=== PATIENT | female | born 1990 | race Caucasian/White ===

== ENCOUNTER → 2020-12-23 13:30 | Outpatient (BNVA) | payer MEDICAID, SELFPAY | PROVIDERS: PCP Nurse Practitioner; Visit Provider Internal Medicine Gastroenterology ==

== ENCOUNTER 2021-01-18 06:24 | Day surgery (SDC) | payer MEDICAID, SELFPAY ==
[2021-01-12 11:34] VITALS: BMI 25.6
--- NOTE | 2021-01-17 10:22 | P.CONAN_ITS ---
Documented by User: Addie Powell 01/17/21 10:23 HPI - Anesthesia Eval Consult details Narrative: 30yo F for Upper Endoscopy PMFSH Active Problems Active Problems: All Active Problems (Updated 01/12/21 @ 11:36 by Ginette Juarez) Celiac disease (Acute) Chronic RLQ pain (Acute) Iron deficiency anemia (Acute) Anxiety (Acute) Past Medical History Medical History Anemia History of celiac disease Family History Family History Father No problems noted. Mother No problems noted. Surgical History Surgical History Hx of abdominoplasty Hx of section Hx of tonsillectomy Hx of umbilical hernia repair Social History Social History Household Members: Significant Other and Children Are you a primary day care attendant to a significant other at home: No Do you presently have visiting nurse or other home services: No Alcohol intake: current Alcohol intake frequency: a few times a month Smoking Status: Current every day smoker Tobacco Type: Cigarette Cigarettes Per Day: 3 Years Smoked: 8 Smoked in Last 30 Days: Yes Use of substances other than those prescribed or required for medical reasons: No Have you been hit, kicked, punched, or otherwise hurt by someone within the past year? 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 Allergies Allergy/AdvReac Type Severity Reaction Status Date / Time No Known Allergies Allergy Mild UNKNOWN Verified 01/18/21 06:33 Exam Exam Date and Time: January 17, 2021 1022 Height,Weight and Vital Signs: Height 5 ft 2 in Weight 63.503 kg Assessment and Plan Assessment Anesthesia Assessment: Chart Reviewed Documented by User: Reny Olmstead 01/18/21 08:05 [facility] Past Medical History Medical History Anemia History of celiac disease Family History Family History Father No problems noted. Mother No problems noted. Family history of problems with anesthesia: No Surgical History Surgical History Hx of abdominoplasty Hx of section Hx of tonsillectomy Hx of umbilical hernia repair History of Problems with Anesthesia: No Social History Social History Household Members: Significant Other and Children Are you a primary day care attendant to a significant other at home: No Do you presently have visiting nurse or other home services: No Alcohol intake: current Alcohol intake frequency: a few times a month Smoking Status: Current every day smoker Tobacco Type: Cigarette Cigarettes Per Day: 3 Years Smoked: 8 Smoked in Last 30 Days: Yes Use of substances other than those prescribed or required for medical reasons: No Have you been hit, kicked, punched, or otherwise hurt by someone within the past year? 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 Allergies Allergy/AdvReac Type Severity Reaction Status Date / Time No Known Allergies Allergy Mild UNKNOWN Verified 01/18/21 06:33 Exam Height,Weight and Vital Signs: Vital Signs Temp Pulse Resp BP Pulse Ox 01/18/21 06:46 98.2 F 85 18 107/71 96 Pertinent Lab Results Pertinent Lab Results: Lab Results 01/18/21 Range/Units 06:37 Urine Test NEGATIVE (NEGATIVE) Airway Mallampati Class: II TM Dist: >3cm Neck ROM: Full Heart: RRR Lungs: CTAB Assessment and Plan Assessment Anesthesia Assessment: Anesthesia Plan Discussed and Chart Reviewed Final Anesthetic Review NPO: Yes ASA Class: II Final Preanesthetic Review: No Changes in Pt Med Stat, Meds/Allgs Chart Reviewed, Consent Obtained/Reviewed and Anes Risks/Benef Reviewed Patient Risk: Low Procedure Risk: Low Assessment/Block/Sedation in SS: Assess/Block/Sedation-SS Anesthetic Plan Anesthetic Plan: MAC: Disposition: Standard PACU
[2021-01-18 06:46] VITALS: BP 107/71; PULSE 85; RESP 18; TEMP 36.8; O2SAT 96
[2021-01-18 06:53] LABS: UPreg QC Valid YES; Urine Pregnancy NEGATIVE (NEGATIVE)
--- NOTE | 2021-01-18 06:55 | W.PM.OPN ---
Operative Note Operative Note Date of Service: 01/18/21 Narrative: Pre-op diagnosis: Positive antibody for celiac disease, anemia Post-op diagnosis: other (antral gastritis, celiac sprue) Procedure: FLEXIBLE TRANSORAL UPPER GASTROINTESTINAL ENDOSCOPY WITH BIOPSIES Consent: Indications for the procedure and potential complications of bleeding, perforation, reaction to medications and missed diagnosis were discussed with the patient and informed consent was obtained. Instrument: Olympus GIF H 190 mid size upper endoscope Monitoring: Vital signs and clinical assessment, continuous EKG monitoring, Pulse oximetry, Carbon Dioxide monitoring and blood pressure monitoring were done throughout the procedure. Procedure: The patient was placed in the left lateral decubitis position and pre-procedure medications were administered and a bite block was placed. The endoscope was inserted into the mouth and advanced under direct vision to the third part of duodenum. A careful inspection was made as the upper endoscope was withdrawn including a retroflexed examination of the proximal stomach; Findings and interventions are described below. Findings: Larynx: Normal Esophagus: GE junction at 36 cms. No esophagitis or [place] Stomach: Mild gastric erythema. Biopsies were obtained. Grade 1 flap valve on retroflexed examination of the cardia. Duodenum: Normal bulb. Ridges and furrows were noted in the descending duodenum suggestive of celiac sprue and multiple biopsies were obtained. Intervention: Biopsies as noted above Impression and Post Procedure Diagnosis: Endoscopy Findings: STOMACH: Mild antral gastritis. DUODENUM: Mucosal atrophy indicated by ridges and furrows was noted in the descending duodenum suggestive of celiac sprue and multiple biopsies were obtained. Plan: Await pathology results Patient has an appointment on 02/03/21 in the [facility] with Noreen Holly. Above findings were reviewed with the patient and handout on Celiac Sprue was given in the discharge area Surgeon: Batool Dudley MD Anesthesia: MAC (Jazmine Phoenix CRNA) Strategic Analyst: Carmen Epps Estimated blood loss (mL): 0 Pathology: other (A. Small bowel, B. Gastric antrum) Condition: stable Disposition: PACU
--- NOTE | 2021-01-18 06:56 | MHC.SHP ---
Pre-Procedural Eval Section A The patient is an INPATIENT: No The History & Physical has been completed within 30 days and I have reviewed it.: No Section B Chief Complaint: anemia Relevant Family History (Specify if Yes): No Relevant Social History: Tobacco Use Present Medications: see Short Stay Collaborative assessment Medical History: Significant History (Celiac disease, anemia, right lower quadrant pain, anxiety) History of Previous Operations: Relevant previous surgery/procedure and date(s) (Hx of abdominoplasty Hx of section Hx of tonsillectomy Hx of umbilical hernia repair) Allergies: Allergies Allergy/AdvReac Type Severity Reaction Status Date / Time No Known Allergies Allergy Mild UNKNOWN Verified 01/18/21 06:33 Review of Systems Sugical H&P ROS: Negative: Constitution, Cardiovascular, Respiratory and Gastrointestinal Exam Surgical H&P Exam: Normal: Heart, Normal: Lungs, Normal: Extremities and Normal: Abdomen Plan Diagnosis/Plan: Unchanged I have reviewed the history and physical and performed a pertinent physical examination on my patient. No changes have occurred unless specified.
[2021-01-18] MEDS: Lactated Ringers 1,000 ML 100 ML IVCONT (06:59)
[2021-01-18 08:05] VITALS: BP 115/58; PULSE 81; RESP 16; TEMP 36.4; O2SAT 99
[2021-01-18 08:20] VITALS: BP 110/66; PULSE 68; RESP 16; TEMP 36.4; O2SAT 99
== END 2021-01-18 08:38 | disposition home or self-care (01) ==
PROVIDERS: Nurse Practitioner; Visit Provider Internal Medicine Gastroenterology
PROC: 0DJ08ZZ Inspection of Upper Intestinal Tract, Via Natural or Artificial Opening Endoscopic (ICD-10-PCS; CPT 43235; principal; 2021-01-18 07:30)
DX: D50.9 Iron deficiency anemia, unspecified (principal); K29.50 Unspecified chronic gastritis without bleeding; K90.0 Celiac disease; Z98.890 Other specified postprocedural states; F41.9 Anxiety disorder, unspecified; F17.210 Nicotine dependence, cigarettes, uncomplicated; Z79.899 Other long term (current) drug therapy
CPT/HCPCS: 43239; 81025; 88305; 88342; J2250; J3010

== ENCOUNTER → 2021-03-28 10:57 | Outpatient (BNVA) | payer MEDICAID, SELFPAY | PROVIDERS: Visit Provider Internal Medicine Gastroenterology ==

== ENCOUNTER → 2021-06-30 09:58 | Outpatient (BNVA) | payer MEDICAID, SELFPAY | PROVIDERS: Visit Provider Internal Medicine Gastroenterology ==

== ENCOUNTER → 2021-07-21 12:49 | Outpatient (BNVA) | payer MEDICAID, SELFPAY | PROVIDERS: Visit Provider Dietitian, Registered | DX: K90.0 Celiac disease (principal) | CPT/HCPCS: 97802 ==

== ENCOUNTER → 2021-10-03 14:20 | Outpatient (BNVA) | payer MEDICAID, SELFPAY | PROVIDERS: Visit Provider Internal Medicine Gastroenterology ==